=== PATIENT | female | born 1985 | race Caucasian/White ===

== ENCOUNTER 2018-03-02 13:12 | Emergency (ER) | payer OTHER ==
[2018-03-02 13:35] VITALS: TEMP 98.4; BMI 29.2
--- NOTE | 2018-03-02 14:19 | PDOC ---
History of Present Illness - General Chief Complaint: Vaginal Bleeding Stated Complaint: VAGINAL BLEEDING (6 WKS ) Time Seen by Provider: 03/02/18 13:39 History Source: Patient Exam Limitations: No Limitations - History of Present Illness Initial Comments: 03/02/18 14:14 32 yo female pmh PCOS and [id number] and a half weeks (first preg) told 02/28/2018 by INFANTRY OFFICER via transvag US that it was a missed presents to the ED with vaginal spotting X 1 day. Pt states she saw her OB who tried to doppler the abdomen heart sounds without success and did not have a live IUP 02/28/2018 then told to wait for the fetus to pass. Follow up US and appointment made for next week. Pt denies abdominal pain, cramping, passing clots or parts. No F/C/N/V, changes in bowel or bladder habits Past History - Past Medical History Allergies/Adverse Reactions: Allergies Allergy/AdvReac Type Severity Reaction Status Date / Time No Known Allergies Allergy Verified 03/02/18 13:31 Home Medications: Ambulatory Orders NK [No Known Home Medication] 03/02/18 COPD: No - Reproductive History Cervical CA: No Dysfunctional Uterine Bleeding: No Ectopic : No Endometrial CA: No Polycystic Ovaries: No Therapeutic (s) & number: No Tubal Ligation: No Spontaneous : 1 - Immunization History Immunization Up to Date: No - Suicide/Smoking/Psychosocial Hx Smoking History: Never smoked Hx Alcohol Use: No Drug/Substance Use Hx: No *Physical Exam - Vital Signs Last Vital Signs Temp Pulse Resp BP Pulse Ox 98.4 F 85 18 117/74 100 03/02/18 13:33 03/02/18 13:33 03/02/18 13:33 03/02/18 13:33 03/02/18 13:33 Moderate Sedation - Procedure Monitoring Vital Signs: Procedure Monitoring Vital Signs Temperature 98.4 F 03/02/18 13:33 Pulse Rate 85 03/02/18 13:33 Respiratory Rate 18 03/02/18 13:33 Blood Pressure 117/74 03/02/18 13:33 O2 Sat by Pulse Oximetry (%) 100 03/02/18 13:33 ED Treatment Course - LABORATORY CBC & Chemistry Diagram: 03/02/18 14:23 03/02/18 14:23 *DC/Admit/Observation/Transfer Diagnosis at time of Disposition: Missed - Discharge Dispostion Disposition: HOME Condition at time of disposition: Stable Decision to Admit order: No - Referrals Referrals: Bina Poon CNM, [Non Staff, Medical] - - Patient Instructions Printed Discharge Instructions: DI for Threatened Additional Instructions: You were seen here today for vaginal spotting and a follow up ultrasound for . No viable was visualized/no heart rate seen. Please keep your appointment with your INFANTRY OFFICER doctor next Tuesday at 1 pm for follow up. Please return to the Emergency Room for severe abdominal pain, high fevers, excessive bleeding, weakness or fatigue. Use 600mg over the counter Motrin every 6-8 hours for pain control. Expect to have cramping with some vaginal spotting and bleeding with the . Thank you - Post Discharge Activity
[2018-03-02 15:26] LABS: BASO % 0.2 % (0-2.0); EOS % 3.7 % (0-4.5); HEMATOCRIT 35.3 % (32.4-45.2); HEMOGLOBIN 12.6 GM/dL (10.7-15.3); LYMPH % 21.3 % (8-40); MCH 31.3 pg (25.7-33.7); MCHC 35.8 g/dl (32.0-36.0); MEAN CELL VOLUME 87.5 fl (80-96); MEAN PLT VOLUME 8.4 fl (7.5-11.1); MONO % 8.7 % (3.8-10.2); NEUT % 66.1 % (42.8-82.8); PLATELET COUNT 291 K/MM3 (134-434); RBC 4.04 M/mm3 (3.60-5.2); WHITE BLOOD COUNT 8.5 K/mm3 (4.0-10.0)
[2018-03-02 16:09] LABS: ALK PHOS 74 U/L (45-117); ANION GAP 11 MMOL/L (8-16); BILIRUBIN,TOTAL 0.2 mg/dL (0.2-1); BLOOD UREA NITROGEN 10 mg/dL (7-18); CALCIUM 8.8 mg/dL (8.5-10.1); CHLORIDE 104 mmol/L (98-107); CO2 24 mmol/L (21-32); CREATININE 0.5 mg/dL (0.55-1.3); GLUCOSE,RANDOM 125 mg/dL (74-106); POTASSIUM 3.8 mmol/L (3.5-5.1); SGOT/AST 23 U/L (15-37); SGPT/ALT 38 U/L (13-61); SODIUM 139 mmol/L (136-145)
[2018-03-02 16:52] VITALS: BP 112/78; PULSE 74
--- NOTE | 2018-03-02 16:54 | PDOC ---
Attending Attestation - HPI HPI: 03/02/18 16:59 Patient is a 32 year old female,12 weeks A0, with a significant past medical history of PCOS who presents to the ED with complaints of vaginal spotting that began x1 day ago. Patient reports seeing her PROPERTY WORKER on 02/24, stating a doppler was conducted and was told heart sounds detection was not successful, and told to allow time for the fetus to pass. She reports coming into the ED for further evaluation as well as second opinion considering the status of the fetus. Denies chest pain, sob. Denies nausea, vomiting. Denies fevers, chills. Denies diarrhea, constipation. Denies dysuria, hematuria. Denies trauma to affected area. Denies contact with sick individuals, out of state travelling. Denies any other symptoms. Allergies: None Social history: No smoking. No alcohol. No illicit drugs. Surgical history: None PMD: None <NolaAnt wang - Last Filed: 03/02/18 16:56> - Resident Resident Name: Kane Louis - ED Attending Attestation I have performed the following: I have examined & evaluated the patient, The case was reviewed & discussed with the resident, I agree w/resident's findings & plan, Exceptions are as noted - Physicial Exam PE: GENERAL: Awake, alert, and fully oriented, in no acute distress HEAD: No signs of trauma EYES: PERRLA, EOMI, sclera anicteric, conjunctiva clear ENT: Auricles normal inspection, hearing grossly normal, nares patent, oropharynx clear without exudates. Moist mucosa NECK: Normal ROM, supple, no lymphadenopathy, JVD, or masses LUNGS: Breath sounds equal, clear to auscultation bilaterally. No wheezes, and no crackles HEART: Regular rate and rhythm, normal S1 and S2, no murmurs, rubs or gallops ABDOMEN: Soft, nontender, normoactive bowel sounds. No guarding, no rebound. No masses EXTREMITIES: Normal range of motion, no edema. No clubbing or cyanosis. No cords, erythema, or tenderness NEUROLOGICAL: Cranial nerves II through XII grossly intact. Normal speech, normal gait SKIN: Warm, Dry, normal turgor, no rashes or lesions noted. - Medical Decision Making Pt with spotting, no heart motion on sono. Likely miscarriage in progress. We discussed the importance of f/u with services host. Expectant management. <Jessica Maier - Last Filed: 03/02/18 17:04>
== END 2018-03-02 16:51 | disposition home or self-care (01) ==
LOC: JER 13:12
DX: O02.1 Missed abortion (principal)
CPT/HCPCS: 36415; 76817-TC; 80053; 84702; 85025; 86850; 86900; 86901; 99282-25

== ENCOUNTER 2018-03-07 09:26 | Emergency (ER) | payer OTHER ==
--- NOTE | 2018-03-07 09:47 | PDOC ---
History of Present Illness - General Stated Complaint: POSS MISCARRIAGE (8WEEKS PREG) Time Seen by Provider: 03/07/18 09:46 History Source: Patient Exam Limitations: No Limitations - History of Present Illness Initial Comments: Pt is , with PMH of PCOS, who is presenting after passing what she believes to be products of conception. Pt was passing clots starting yesterday, and around 8 am today she passed what looked to be a "sac". She complains only of mild abdominal and lower back cramping. Pt was recently seen at [facility] ER (2017) with vaginal bleeding. US at that time showed suspected demise, with gestational sac at 7 weeks 5 days (beta hcg 6235). Pt denies any fevers/ chills, headache, vision changes, chest pain, palpitations, SOB, nausea/vomiting , urinary symptoms, diarrhea/constipation, or leg swelling. OB physician: Dr. Bina Poon ([phone]) Last regular menstrual period: 11/27/2017 Social: Pt denies any cigarette, alcohol, or drug use. Pt denies any recent travel or sick contacts. Surgical: no relevant history Family: no relevant history 03/07/18 10:53 03/07/18 11:52 Past History - Travel Traveled outside of the country in the last 30 days: No Close contact w/someone who was outside of country & ill: No - Past Medical History Allergies/Adverse Reactions: Allergies Allergy/AdvReac Type Severity Reaction Status Date / Time No Known Allergies Allergy Verified 03/02/18 13:31 Home Medications: Ambulatory Orders No122/Iron/Folic Acid [ Multi Tablet] 1 each PO DAILY 03/07/18 Anemia: No Cardiac Disorders: No Diabetes: No HTN: No Hypercholesterolemia: No - Surgical History Abdominal Surgery: No - Reproductive History Cervical CA: No Dysfunctional Uterine Bleeding: No Ectopic : No Endometrial CA: No Polycystic Ovaries: No Therapeutic (s) & number: No Tubal Ligation: No Spontaneous : 1 - Immunization History Immunization Up to Date: No - Suicide/Smoking/Psychosocial Hx Smoking History: Never smoked Hx Alcohol Use: No Drug/Substance Use Hx: No Review of Systems - Review of Systems Able to Perform ROS?: Yes Is the patient limited Telugu proficient: No Constitutional: Yes: Weight Stable. No: Chills, Diaphoresis, Fever, Loss of Appetite, Weakness HEENTM: No: Recent change in vision, Nose Congestion Respiratory: No: Cough, Orthopnea, Shortness of Breath Cardiac (ROS): No: Chest Pain, Edema, Irregular Heart Rate, Lightheadedness, Palpitations, Syncope ABD/GI: Yes: See HPI, Abdominal cramping. No: Abdominal Distended, Blood Streaked Bowels, Constipated, Diarrhea, Nausea, Poor Appetite, Poor Fluid Intake , Vomiting : Yes: Other (vaginal bleeding, passage of tissue this AM). No: Burning, Dysuria, Frequency, Hematuria, Pain Musculoskeletal: Yes: See HPI, Back Pain Integumentary: No: Lesions, Rash Neurological: No: Headache, Weakness, Unsteady Gait, Dizziness Psychiatric: No: Sleep Pattern Change, Change in Appetite Endocrine: No: Increased Urine, Change in Weight Hematologic/Lymphatic: No: Anemia, Blood Clots, Easy Bleeding, Easy Bruising All Other Systems: Reviewed and Negative *Physical Exam - Physical Exam General Appearance: Yes: Nourished, Appropriately Dressed. No: Apparent Distress HEENT: positive: EOMI, SAILAJA, Normal ENT Inspection, Normal Voice, Pharynx Normal , Hearing Grossly Normal. negative: Scleral Icterus (R), Scleral Icterus (L), Pharyngeal Erythema, Tonsillar Exudate, Tonsillar Erythema Neck: positive: Trachea midline, Normal Thyroid, Supple. negative: Tender, Rigid, Lymphadenopathy (R), Lymphadenopathy (L) Respiratory/Chest: positive: Lungs Clear, Normal Breath Sounds. negative: Chest Tender, Respiratory Distress, Accessory Muscle Use, Wheezing Cardiovascular: positive: Regular Rhythm, Regular Rate, S1, S2. negative: Edema , JVD, Murmur Vascular Pulses: Carotid (R): 4+, Carotid (L): 4+ Female Pelvic Exam: positive: normal external exam, normal adnexa, normal size ovaries, vaginal bleeding, other (mild blood in vaginal canal, no pooling, cervix visible. No obvious passage of tissue at this time, no clots. Cervix open to fingertip. Pt has tissue in a bag that looks like a defined sac.). negative: cervical os closed, CMT, discharge, lesions, adnexal tenderness Gastrointestinal/Abdominal: positive: Normal Bowel Sounds, Flat, Soft, Other ( fundal height below umbilicus.). negative: Tender, Organomegaly, Pulsatile Mass Rectal Exam: positive: deferred Lymphatic: negative: Adenopathy, Tenderness Musculoskeletal: positive: Normal Inspection. negative: CVA Tenderness Extremity: positive: Normal Capillary Refill, Normal Inspection, Normal Range of Motion, Pelvis Stable. negative: Tender, Pedal Edema Integumentary: positive: Normal Color, Dry, Warm. negative: Jaundice, Clammy, Diaphoresis, Rash, Ecchymosis Neurologic: positive: two way radio installer II-XII NML intact, Fully Oriented, Alert, Normal Mood/ Affect, Normal Response, Motor Strength 07/23 ED Treatment Course - LABORATORY CBC & Chemistry Diagram: 03/07/18 10:40 Medical Decision Making - Medical Decision Making Pt was seen at bedside, also will be seen by attending Dr. Felix. Pt is , presenting after passing what she believes to be products of conception. Pt was passing clots starting yesterday, and around 8 am today she passed what looked to be a "sac". She complains only of mild abdominal and lower back cramping. Pt was recently seen at [facility] ER (03/02/2018) with vaginal bleeding. US at that time showed suspected demise, with gestational sac at 7 weeks 5 days ( beta hcg 6235). Pt denies any fevers/chills, headache, vision changes, chest pain, palpitations, SOB, nausea/vomiting, urinary symptoms, diarrhea/ constipation, or leg swelling. PE showed clear heart and lung sounds, no abdominal or CVA tenderness. No pedal edema. Vaginal exam showed blood in the vaginal canal, bleeding through the cervix, but no obvious passage of tissues. Cervix was open to fingertip. No foul smelling or unusually colored discharge present, no CMT. Pt brought bag with passed products, which appeared to be gestational sac. Considering passed products of conception/ vs threatened . Unlikely normal bleeding given history and tissue present. Ordered work-up including CBC, type & screen, beta-hcg, and transvaginal US to r /o . Pt denying pain control at this time. Will continue to reassess pt and monitor for symptomatic improvement. 03/07/18 10:41 Labs sent and pending. Pt will be taken for transvaginal US. 03/07/18 10:44 Pt returned from US. Pending report. 03/07/18 11:26 [id number] US/TRANSVAGINAL US PREG Transvaginal obstetrical ultrasound CLINICAL INFORMATION: ~ 14 weeks, suspected today In comparison to a prior ultrasound study of 03/02/2018 there is no longer visualization of a nonviable intrauterine embryonic pole consistent with interval . No obvious retained products of conception are noted. The endometrium is thickened measuring 1.9 cm. A trace amount of free fluid is noted within the cul-de-sac. The ovaries could not be visualized at this time due to obscuring bowel gas. 03/07/18 11:[address] Poon office ([phone]) to see if pts appointment can be rescheduled for follow-up. Pt provided with US report to take to appointment. 03/07/18 11:51 Pt can be seen in her OB clinic tomorrow as a walk-in. Strict return precautions provided. 03/07/18 12:11 *DC/Admit/Observation/Transfer Diagnosis at time of Disposition: , complete - Discharge Dispostion Disposition: HOME Condition at time of disposition: Good Decision to Admit order: No - Referrals Referrals: Bina Poon CNM, [Non Staff, Medical] - [facility] [place] [Provider Group] - Patient Instructions Additional Instructions: You were seen in the ER today after a miscarriage. The results of your labs and imaging today showed that you had a complete miscarriage, and your labwork was normal. Please follow-up with your OB tomorrow to discuss your visit and make sure your symptoms have improved. Please return to the ER if you have any worsening pain, severe passage of blood (complete soaking of 1-2 pads per hour) , development of fevers or chills, loss of consciousness, inability to tolerate food or fluids, or any other concerns. - Post Discharge Activity Forms/Work/School Notes: Back to Work
[2018-03-07 10:01] VITALS: BMI 29.2
--- NOTE | 2018-03-07 10:18 | PDOC ---
Attending Attestation - Resident Resident Name: Alicia Lentz - ED Attending Attestation I have performed the following: I have examined & evaluated the patient, The case was reviewed & discussed with the resident, I agree w/resident's findings & plan, Exceptions are as noted - HPI HPI: 03/07/18 11:01 32y F , PCOS, presents with vag bleeding recent visit to the ED, suspect demise without FHR vag bleeding/clots since last night with cramping. Passed significant tissue around 8am associated with mild cramping. current bleeding is approx like a period no associated dysuria, fever/chills, back pain - Physicial Exam PE: 03/07/18 12:14 abd soft nontender no cva tenderness - Medical Decision Making 03/07/18 12:14 US cw with completed we'll have the patient follow up with [facility], return precautions were discussed blood O+ fro mprevious admission rhogam not necessary
[2018-03-07 10:46] LABS: HEMATOCRIT 35.8 % (32.4-45.2); HEMOGLOBIN 12.8 GM/dL (10.7-15.3); MCH 31.2 pg (25.7-33.7); MCHC 35.9 g/dl (32.0-36.0); MEAN PLT VOLUME 8.1 fl (7.5-11.1); PLATELET COUNT 273 K/MM3 (134-434); RBC 4.11 M/mm3 (3.60-5.2); RDW 12.8 % (11.6-15.6); WHITE BLOOD COUNT 8.7 K/mm3 (4.0-10.0)
[2018-03-07 12:33] VITALS: BP 119/73; PULSE 88; TEMP 97.5
--- NOTE | 2018-03-08 17:00 | PATH ---
Surgical Pathology Report Patient Name: LEEANN MORGAN [facility]. Rec. #: [id number] /Age/Gender: 1985 (Age: 32) / F Account: [id number] Location: EMERGENCY ROOM Taken: 03/07/2018 Received: 03/07/2018 Reported: 03/08/2018 Physicians: Leandro Felix M.D. PHYSICIAN EMERGENCY DEPT Specimen(s) Received PRODUCTS OF CONCEPTION Clinical History Onset 03/03/18- c/o vaginal bleeding with clots. Today passed the products of conception. Final Diagnosis PRODUCTS OF CONCEPTION, PASSAGE: IMMATURE CHORIONIC VILLI AND SOMATIC TISSUE CONSISTENT WITH PRODUCTS OF CONCEPTION. Electronically Signed Lucinda Gurrola M.D. Gross Description Received fresh labeled with the patient's name and indicated on the requisition to be products of conception is a 2.7 x 2.4 x 0.5 cm portion of dumont-pink soft tissue, consistent with products of conception. Villous tissue is identified. No definite somatic tissue is identified. The specimen is entirely submitted in one cassette. /03/07/2018 [facility]03/07/2018
== END 2018-03-07 12:33 | disposition home or self-care (01) ==
LOC: JER 09:26
DX: O03.9 Complete or unspecified spontaneous abortion without complication (principal); E28.2 Polycystic ovarian syndrome
CPT/HCPCS: 36415; 76817-TC; 84702; 85027; 86850; 86900; 86901; 88305-TC; 99283-25